=== PATIENT | female | born 1955 | race Caucasian/White ===

== ENCOUNTER 2017-12-01 22:06 | Inpatient (IN) | payer OTHER ==
[~2017-12-01] VITALS: Ht 175.3 cm; Wt 85.7 kg
[~2017-12-01 22:06] MED LIST: ALEVE220 MG PO; CIPRO500 M1 PO; CIPRO750 MG PO; COREG25 MG PO; COREG6.25 M1 PO; EFFEXOR75 MG PO; FLAGYL500 MG PO; FLUOXETINE HCL40 MG PO; GABAPENTIN300 MG PO; LEXAPRO10 MG PO; NEXIUM40 MG PO; NITROFURANTOIN50 MG PO; NORCO 5/3251 TABLET PO; ZANAFLEX4 M1 PO; ZESTRIL,PRINIVI10 MG PO; ZOCOR40 MG PO
[2017-12-02 10:41] VITALS: BP 119/58
[2017-12-02 18:23] VITALS: BP 111/49
[2017-12-02 19:42] VITALS: BP 119/69
[2017-12-03 04:30] VITALS: BP 119/49
[2017-12-03 07:53] VITALS: BP 131/61
[2017-12-03] MEDS ORDERED: HYDROCODON-ACE1 EAC7 PO (08:11)
[2017-12-03] MEDS ORDERED: TIZANIDINE HCL4 MG PO (08:11)
== END 2017-12-03 10:35 | disposition home or self-care (01) | DRG 460 ==
LOC: ENRESERV 22:06 → 2SOUTH 12-02 10:01 → ENRESERV 12-02 17:49 → 3EAST 12-02 18:08 → 2SOUTH 12-02 18:30 → 3EAST 12-03 10:35
PROC: 0SG30AJ Fusion of Lumbosacral Joint with Interbody Fusion Device, Posterior Approach, Anterior Column, Open Approach (ICD-10-PCS; principal; 2017-12-02)
DX: M43.17 Spondylolisthesis, lumbosacral region (principal); M43.06 Spondylolysis, lumbar region; M48.46XA Fatigue fracture of vertebra, lumbar region, initial encounter for fracture; M48.061 Spinal stenosis, lumbar region without neurogenic claudication; M54.17 Radiculopathy, lumbosacral region; I10 Essential (primary) hypertension; K21.9 Gastro-esophageal reflux disease without esophagitis; F32.9 Major depressive disorder, single episode, unspecified; G62.9 Polyneuropathy, unspecified
CPT/HCPCS: 36415; 72100; 76000; 80048; 81003; 85025 GA; 86850; 86900; 86901; 94799; C1713; J0330; J0690; J1100; J1170; J1885; J2405; J2710; J3010; J3370; J3480; Q0175; S0020